=== PATIENT | female | born 1955 | race Caucasian/White ===

== ENCOUNTER → 2020-09-19 | Outpatient (CLI) | payer MEDICARE ==
[~2020-09-19] MED LIST: ALPR0.5T PO; BUPIVACAINE MPF 0.25% 10 ML VIAL. ONE; CARV6.2511 PO; IBUP-1027 PO; IOHEXOL 180 MG/ML 10 ML VIAL. ONE; LEVO50TA5 PO; METF500T16 PO; OMEP20CA16 PO; POTA10TA12 PO; SERT50TA PO; SPIR25TA5 PO; methylPREDNISolone ACETATE 80 MG/ML VIAL. ONE
--- NOTE | 2020-09-19 12:30 | PDOC4 ---
PROCEDURE Procedure Patient was consented for right intra-articular hip joint injection. Risks were discussed including not limited bleeding infection possibility of intravascular injection sequelae spread local anesthetic numbness side effects of steroid medication and poor results regarding pain control. Patient understands wished to proceed. Under sterile prep and drape patient in supine position patient's right hip was visualized using C-arm fluoroscopic guidance. Using 1% lidocaine area lateral to the hip joint was anesthetized and using direct fluoroscopic vision 22-gauge 5 inch Quincke needle with stylette was then advanced under direct fluoroscopic guidance into the right intra-articular hip joint. 3 cc of contrast was used to show good spread within the hip joint itself and without washout or uptake. At this time, 3 cc 0.25% bupivacaine and 80 mg Depo-Medrol was then injected into the hip joint. Needle was withdrawn and sterile bandage was applied. Patient tolerated procedure well and had no complications. FATIMAH ORTEGA MD September 19, 2020 12:30
--- NOTE | 2020-09-19 12:30 | PDOC1 ---
INITIAL PAIN CONSULT DATE OF SERVICE: DOS: DATE: 09/19/20 TIME: 12:23 CHIEF COMPLAINT: Chief Complaint: Right hip pain HISTORY OF PRESENT ILLNESS: 65-year-old female presents with history of pain right hip and low back for about 2 years increasing with walking and standing putting all of her weight on her right leg pain rating into the posterior gluteus lateral thigh anterior thigh occasionally into the lower leg but mostly in the right hip with weightbearing patient reports when she is sitting it does not bother her generally does not awaken her from sleep does not affect her bowel bladder control but does affect her ability to walk patient reports is becoming more noticeable when she is put all of her weight on 1 leg such as climbing a stair or climbing up on a step patient reports the pain is sharp and stabbing can be radiating in the leg but is usually in the hip itself intermittent intensity bending forward increases the pain as well with putting weight on the right leg also. Patient rates her disability rating 0-10 10 being worst is a 3 with family home responsibilities 7 with recreation to a social activity 7 with occupational activities 5 with sexual Haver 0 with self-care or life support activities. Patient has tried physical therapy about a year ago it was not significantly helpful in decreasing the pain. Patient is taking Advil [id number] and it does decrease the pain but only mildly. Patient has not tried any other therapies or any other treatments or medications at this time. Patient have x-rays of the hip and pelvis show degenerative change in the hips right greater than left with no evidence of fracture or dislocation moderate degenerative change in the right hip with prominent marginal osteophytes and only mild hip joint space narrowing. PAST MEDICAL HISTORY: PMH: Hypertension, arthritis, esophageal reflux, basal cell carcinoma PREVIOUS SURGERIES: Past Surgical Hx: Cholecystectomy, D&C x2, skin cancer removal, breast biopsy x2 CURRENT MEDICATIONS: Current Meds: Active Scripts Medications Dose Route/Sig Max Daily Dose Days Date Category Ibuprofen 400 Mg Tablet 400 Mg PO PRN Q6HRS PRN 09/19/20 Reported Xanax (Alprazolam) 0.5 Mg Tablet 1 Tab PO DAILY 09/19/20 Reported Levothyroxine Sodium 50 Mcg Tablet 1 Tab PO DAILY 09/19/20 Reported Carvedilol (Carvedilol) 6.25 Mg Tablet 6.25 Mg PO BIDWMEALS 09/19/20 Reported Zoloft (Sertraline Hcl) 50 Mg Tablet 1 Tab PO DAILY 09/19/20 Reported Spironolactone 25 Mg Tablet 1 Tab PO DAILY 09/19/20 Reported Metformin Hcl 500 Mg Tablet 500 Mg PO BIDWMEALS 09/19/20 Reported Omeprazole 20 Mg Capsule.dr 1 Cap PO DAILY 09/19/20 Reported Klor-Con 10 (Potassium Chloride) 10 Meq Tablet.er 10 Meq PO BID 09/19/20 Reported ALLERGIES; Allergies: Coded Allergies: adhesive (Verified Allergy, Intermediate, rash, 09/19/20) bacitracin (Verified Allergy, Intermediate, Rash, 09/19/20) neomycin (Verified Allergy, Intermediate, Rash, 09/19/20) polymyxin B (Verified Allergy, Intermediate, Rash, 09/19/20) shrimp (Verified Allergy, Intermediate, vomiting, 09/19/20) FAMILY HISTORY: Family Hx: Cancers and heart disease SOCIAL HISTORY: Social Hx: Patient does not lizzy alcohol does not smoke or use any illegal illicit or recreational drugs is lives with her spouse lives locally in [facility] and 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 REVIEW OF SYSTEMS: ROS: Positive for those items mentioned in history of present illness, all systems are reviewed, otherwise negative ,and are complete full and well-documented on patient's chart. PHYSICAL EXAM: VS: Blood pressure 137/89 pulse 90 respirations 20 temperature 98.5 F height 5 feet 6 inches weight 200 PE: PHYSICAL EXAMINATION: GENERAL: The patient is awake, alert, oriented, appropriate, very pleasant demeanor HEENT: Shows normocephalic, atraumatic. Extraocular movements are intact and symmetrical. Oral cavity: Mucous membranes moist and pink. Dentition is intact. NECK: Shows anterior throat supple without palpable lymphadenopathy noted. Swallow reflex symmetrical. CHEST: Shows normal on inspection. Breath sounds are clear bilaterally, no rales rhonchi wheezes auscultated. HEART: Shows S1, S2 clear. No murmurs auscultated. ABDOMEN: Soft, nontender, nondistended, obese. No palpable organomegaly is noted. No rebound or guarding demonstrated. BACK: Shows spine grossly in the midline. Normal-appearing cervical lordotic curvature. There is slightly increased thoracic kyphosis, some minor flattening of the lumbar lordotic curvature. Lumbar paraspinous muscles show symmetrical on inspection, on palpation shows some moderate tenderness diffusely throughout the upper, middle and lower distribution of the paraspinous muscles bilaterally and also into the lower thoracic paraspinous musculature, firm and tender, but without specific trigger points, without radiation of pain. The patient has good rotational motion of the lumbar spine, both laterally as well as extension and flexion without significant difficulty. No tenderness over the spinous processes, sacrum or sacroiliac regions. EXTREMITIES: Lower extremities show deep tendon reflexes 2+ in the patellar and tendo calcaneus tendons. Motor exam is 4 on a scale of 5 with right dorsiflexion, extension, quadriceps and hamstring flexion and 5/5 on the left. Peripheral pulses are 1+ posterior tibial. No peripheral edema is noted bilaterally. Lower extremities are warm and dry to touch, equal in color and appearance. Straight leg raise noted to be negative bilaterally. Clayton's maneuver is noted to be positive on the right with external rotation and posterior displacement of the right hip. Left side is negative. The patient is able to stand, stand on toes without significant difficulty or loss of balance, walks with a appearing gait is not appear to favor the right or left lower extremity and is not use any assistive devices ambulate. SKIN: Shows warm and dry, good turgor. No edema. No sores, rashes or bruising throughout. IMPRESSION: Impression: 65-year-old female with approximate 2-year history increasing pain right hip and thigh consistent with osteoarthritis right hip Plain films of hip and pelvis as noted Hypertension Arthritis Obesity Plan: Options were discussed with the patient including conservative medical management physical therapies interventional techniques. Patient would like to pursue interventional techniques. We discussed a right intra-articular hip joint injection using description as well as anatomical models to describe the procedure. Risks were discussed including but not limited to bleeding infection possibility of extravasation of local anesthetic and numbness exposure fluoroscopy side effects steroid medication portals regarding pain control. Patient understands wished to proceed. Patient return to the clinic in approximately 4 weeks for follow-up, was counseled as to return appointment activity level and side effects to be aware of. Under sterile prep and drape patient in supine position patient's right hip was visualized using C-arm fluoroscopic guidance. Using 1% lidocaine area lateral to the hip joint was anesthetized and using direct fluoroscopic vision 22-gauge 5 inch Quincke needle with stylette was then advanced under direct fluoroscopic guidance into the right intra-articular hip joint. 3 cc of contrast was used to show good spread within the hip joint itself and without washout or uptake. At this time, 3 cc 0.25% bupivacaine and 80 mg Depo-Medrol was then injected into the hip joint. Needle was withdrawn and sterile bandage was applied. Patient tolerated procedure well and had no complications. FATIMAH ORETGA MD September 19, 2020 12:30
== END | disposition home or self-care (01) ==
LOC: PNCL 10:21
PROVIDERS: ATTEND Anesthesiology
DX: M25.551 Pain in right hip (principal); I10 Essential (primary) hypertension; M19.90 Unspecified osteoarthritis, unspecified site; K21.9 Gastro-esophageal reflux disease without esophagitis; E66.9 Obesity, unspecified; Z90.49 Acquired absence of other specified parts of digestive tract; Z79.84 Long term (current) use of oral hypoglycemic drugs; Z79.899 Other long term (current) drug therapy; Z98.890 Other specified postprocedural states; Z88.8 Allergy status to other drugs, medicaments and biological substances
CPT/HCPCS: 20610; 77002; J1040; J3490; Q9965

== ENCOUNTER → 2021-01-15 | Outpatient (CLI) | payer MEDICARE ==
--- NOTE | 2021-01-15 12:20 | PDOC ---
Progress Note - Pain Clinic Date of Service: DOS: DATE: 01/15/21 TIME: 12:16 Diagnosis: Dx: Right hip joint pain with osteoarthritis right hip History or Present Illness: HPI: 65-year-old female returns for follow-up status post right intra-articular hip joint injection September 19, 2020, patient reports did very well 100% improvement for at least 2 months pain returning now over the past few weeks in the right hip itself and into the groin with radiating pain on the right sometimes into the lateral thigh as well worse with walking and standing changing positions better with sitting or laying down but sitting for prolonged periods greater than 30 to 40 minutes can increase the pain as well. Patient reports that she is doing much better after the last injection with distance walking doing household activities work activities travel with greater ease and comfort and she reports that she is recently retired and is looking for doing some traveling next month. Patient rates her pain as a 10 on scale 10 is worse over the past week for an average 1 at its least is a 1 today patient ports is aching and sharp in the hip itself burning and stabbing radiating can be severe but on and off in intensity patient reports no bowel or bladder incontinence no loss of motor function but some significant fatigability in the right leg with ambulation which she did not have previously. Physical Exam: VS: Blood pressure is 144/93 pulse 91 respirations 18 temperature is 98.5 F, height is 5 feet 6 inches weight is 198 pounds PE: PHYSICAL EXAMINATION: GENERAL: The patient is awake, alert, oriented, appropriate, very pleasant in demeanor. HEENT: Shows normocephalic, atraumatic. Extraocular movements are intact and symmetrical. Oral cavity: Mucous membranes moist and pink. Dentition is intact. NECK: Shows anterior throat supple without palpable lymphadenopathy noted. Swallow reflex symmetrical. CHEST: Shows normal on inspection. Breath sounds are clear bilaterally, no rales or. HEART: Shows S1, S2 clear. No murmurs auscultated. ABDOMEN: Soft, nontender, nondistended, obese. No palpable organomegaly is noted. BACK: Shows spine grossly in the midline. Normal-appearing cervical lordotic curvature. There is slightly increased thoracic kyphosis, some minor flattening of the lumbar lordotic curvature. Lumbar paraspinous muscles show symmetrical on inspection, on palpation shows some moderate tenderness diffusely throughout the upper, middle and lower distribution of the paraspinous muscles without spe cific trigger points, without radiation of pain. The patient has good rotational motion of the lumbar spine, both laterally as well as extension and flexion without significant difficulty. EXTREMITIES: Lower extremities show deep tendon reflexes 2+ in the patellar and tendo calcaneus tendons. Motor exam is 4 on a scale of 5 with right dorsiflexion, extension, quadriceps and hamstring flexion and 5/5 on the left. Peripheral pulses are 1+ posterior tibial. No peripheral edema is noted bilaterally. Lower extremities are warm and dry to touch, equal in color and appearance. Patient's right hip shows positive Clayton's maneuver with external rotation and posterior displacement significant pain the left side is nontender. SKIN: Shows warm and dry, good turgor. No edema. No sores, rashes or bruising throughout. Procedure: Procedure: Options were discussed with the patient. Patient chart was reviewed as her current medication regimen updated current review of systems updated today as well. We will proceed with a right intra-articular hip joint injection today with fluoroscopic guidance. Risk were discussed including but not limited to bleeding flexion possibility of intravascular injection sequelae spread local anesthetic numbness side effects steroid medication portals regarding pain control. Patient understands wished to proceed. Patient will return to clinic in approximately 1 month for follow-up, was counseled as return appointment, activity level, and side effects beware of. Medication Injected: Med Injected: Under sterile prep and drape patient in supine position patient's right hip was visualized using C-arm fluoroscopic guidance. Using 1% lidocaine area lateral to the hip joint was anesthetized and using direct fluoroscopic vision 22-gauge 5 inch Quincke needle with stylette was then advanced under direct fluoroscopic guidance into the right intra-articular hip joint. 3 cc of contrast was used to show good spread within the hip joint itself and without washout or uptake. At this time, 3 cc 0.25% bupivacaine and 80 mg Depo-Medrol was then injected into the hip joint. Needle was withdrawn and sterile bandage was applied. Patient tolerated procedure well and had no complications. Condition at Discharge: Condition at Discharge: Condition at discharge is stable, patient tolerated the procedure well and had no complications. FATIMAH ORTEGA MD Jan 15, 2021 12:20
--- NOTE | 2021-01-15 12:21 | PDOC4 ---
Procedure Note: ICD 10 Code: ICD 10 Code: M2 5.551 M1 6.11 Procedure Note: Patient was consented for right intra-articular hip injection with fluoroscopic guidance. Risk discussed including not limited to bleeding infection possibility of intravascular injection sequelae spread local anesthetic numbness side effects steroid medications post arthroscopy and portals regarding pain control. Patient understands wished to proceed. Under sterile prep and drape patient in supine position patient's right hip was visualized using C-arm fluoroscopic guidance. Using 1% lidocaine area lateral to the hip joint was anesthetized and using direct fluoroscopic vision 22-gauge 5 inch Quincke needle with stylette was then advanced under direct fluoroscopic guidance into the right intra-articular hip joint. 3 cc of contrast was used to show good spread within the hip joint itself and without washout or uptake. At this time, 3 cc 0.25% bupivacaine and 80 mg Depo-Medrol was then injected into the hip joint. Needle was withdrawn and sterile bandage was applied. Patient tolerated procedure well and had no complications. FATIMAH ORTEGA MD Jan 15, 2021 12:21
== END | disposition home or self-care (01) ==
LOC: PNCL 11:20
PROVIDERS: ATTEND Anesthesiology
DX: M16.11 Unilateral primary osteoarthritis, right hip (principal); Z79.84 Long term (current) use of oral hypoglycemic drugs; Z79.899 Other long term (current) drug therapy; Z88.8 Allergy status to other drugs, medicaments and biological substances
CPT/HCPCS: 20610; 77002; J1040; J3490; Q9965